=== PATIENT | male | born 1965 | race African-American/Black ===

== ENCOUNTER 2018-08-25 10:12 | Inpatient (IN) | payer OTHER ==
[2018-08-25 11:04] VITALS: BMI 31.7
--- NOTE | 2018-08-25 11:39 | HP ---
CIWA Score Nausea/Vomitin Muscle Tremors: 2 Anxiety: 2 Agitation: 2 Paroxysmal Sweats: 1-Minimal Palms Moist Orientation: 0-Oriented Tacttile Disturbances: 1-Very Mild Itch/Numbness Auditory Disturbances: 1-Very Mild Visual Disturbances: 0-None Headache: 2-Mild CIWA-Ar Total Score: 13 - Admission Criteria OASAS Guidelines: Admission for Medically Managed Detox: Requires at least one of the followin. CIWA greater than 12 2. Seizures within the past 24 hours 3. Delirium tremens within the past 24 hours 4. Hallucinations within the past 24 hours 5. Acute intervention needed for co occurring medical disorder 6. Acute intervention needed for co occurring psychiatric disorder 7. Severe withdrawal that cannot be handled at a lower level of care (continued vomiting, continued diarrhea, abnormal vital signs) requiring intravenous medication and/or fluids 8. Admission ROS S - HPI Chief Complaint: i need help to stop drinking alcohol and cocaine Allergies/Adverse Reactions: Allergies Allergy/AdvReac Type Severity Reaction Status Date / Time No Known Allergies Allergy Verified 08/25/18 11:25 History of Present Illness: this 53 years old male with alcohol and cocaine dependence,seeking detox, withdrawal symptom, last treatment in [facility] 04/15/15 to 06/19/14 multiple admissions in detox,but keep relapsing plantar fasciitis left treated with lidocaine and cortisone injection plan to go to see advertising production manager at [facility] nicotine dependence 2 packs /day,plan for patch and gum bipolar disorder non compliance longest sobriety 3 years - Ebola screening Have you traveled outside of the country in the last 21 days: No Have you had contact with anyone from an Ebola affected area: No Have you been sick,other than usual withdrawal symptoms: No Do you have a fever: No - Review of Systems Constitutional: Loss of Appetite, Malaise, Night Sweats, Changes in sleep EENT: reports: Nose Congestion Respiratory: reports: No Symptoms reported Cardiac: reports: No Symptoms Reported GI: reports: Diarrhea, Nausea : reports: No Symptoms Reported, Other (plantar fasciitis left) Musculoskeletal: reports: Back Pain, Muscle Pain Integumentary: reports: Dryness Neuro: reports: Tremors Endocrine: reports: No Symptoms Reported Hematology: reports: No Symptoms Reported Psychiatric: reports: No Sypmtoms Reported, Judgement Intact, Mood/Affect Appropiate, Orientated x3 Other Systems: Reviewed and Negative Patient History - Patient Medical History Hx Anemia: Yes (NOT CURRENTLY IN [place]) Hx Asthma: No Hx Chronic Obstructive Pulmonary Disease (COPD): No Hx Cancer: No Hx Cardiac Disorders: No Hx Congestive Heart Failure: No Hx Hypertension: No Hx Hypercholesterolemia: No Hx Pacemaker: No HX Cerebrovascular Accident: No Hx Seizures: No Hx Diabetes: No Hx Gastrointestinal Disorders: No Hx Liver Disease: No Hx Genitourinary Disorders: No Hx Sexually Transmitted Disorders: No Hx Renal Disease (ESRD): No Hx Thyroid Disease: Yes (TOLD HYPER ACTIVE THYROID AT SOME POINT) Hx Human Immunodeficiency Virus (HIV): No (NEGATIVE HX) Hx Hepatitis C: No Hx Depression: Yes Hx Suicide Attempt: Yes (Pt tried to cut wrists in 1994) Hx Bipolar Disorder: Yes Hx Schizophrenia: No Other Medical History: no suicidal,no homicidal, - Patient Surgical History Past Surgical History: No Hx Neurologic Surgery: No Hx Cataract Extraction: No Hx Cardiac Surgery: No Hx Lung Surgery: Yes (punctured left lung 15 years) Hx Breast Surgery: No Hx Breast Biopsy: No Hx Abdominal Surgery: No Hx Appendectomy: No Hx Cholecystectomy: No Hx Genitourinary Surgery: No Hx Section: No Hx Orthopedic Surgery: Yes (metal deanna in left leg 10 years) Anesthesia Reaction: No - PPD History Previous Implant?: Yes Documented Results: Negative w/o proof Implanted On Prior R Admission?: No Date: 04/17/15 Results: 0 mm PPD to be Administered?: Yes - Reproductive History Patient : No - Smoking Cessation Smoking history: Current every day smoker Have you smoked in the past 12 months: Yes Aproximately how many cigarettes per day: 40 Cigars Per Day: 0 Hx Chewing Tobacco Use: No Initiated information on smoking cessation: Yes 'Breaking Loose' booklet given: 08/25/18 - Substance & Tx. History Hx Alcohol Use: Yes Hx Substance Use: Yes Substance Use Type: Alcohol, Cocaine Hx Substance Use Treatment: Yes (last 04/15/15 to 04/19/15) - Substances Abused Alcohol Route: Oral Frequency: Daily Amount used: 2 pt. vodka Age of first use: 21 Date of Last Use: 08/24/18 Cocaine Route: Inhalation Frequency: Daily Amount used: $100 Age of first use: 21 Date of Last Use: 08/25/18 Family Disease History - Family Disease History Family Disease History: [place]: Father (prostate ) Admission Physical Exam S - Vital Signs Vital Signs: Vital Signs - 24 hr 08/25/18 11:03 Temperature 97.5 F L Pulse Rate 98 H Respiratory 20 Rate Blood Pressure 151/92 - Physical General Appearance: Yes: Moderate Distress, Tremorous, Irritable, Sweating, Anxious HEENTM: Yes: Normal ENT Inspection, TOÑA, Pharynx Normal Respiratory: Yes: Lungs Clear, Normal Breath Sounds, No Respiratory Distress, Other (s/p left chest tube) Neck: Yes: Within Normal Limits, Supple, Trachea in good position Breast: Yes: Within Normal Limits Cardiology: Yes: Within Normal Limits, Regular Rhythm, Regular Rate, S1, S2 Abdominal: Yes: Within Normal Limits, Normal Bowel Sounds, Non Tender, Flat Genitourinary: Yes: Within Normal Limits Back: Yes: Normal Inspection, Muscle Spasm Musculoskeletal: Yes: full range of Motion, Back pain, Muscle Pain Extremities: Yes: Tremors, Other (left platar fasciitis) Neurological: Yes: 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 intact, Alert, Motor Strength 5/5 Integumentary: Yes: Dry, Other (tattooes) Lymphatic: Yes: Within Normal Limits - Diagnostic (1) Alcohol dependence with uncomplicated withdrawal Current Visit: No Status: Acute (2) Bipolar disorder Current Visit: No Status: Acute Qualifiers: Active/Remission status: currently active (3) Cocaine dependence Current Visit: No Status: Acute (4) Nicotine dependence, uncomplicated Current Visit: No Status: Chronic Qualifiers: Nicotine product type: cigarettes Qualified Code(s): F17.210 - Nicotine dependence, cigarettes, uncomplicated (5) Insomnia Current Visit: Yes Status: Acute (6) History of chest tube placement Current Visit: Yes Status: Acute (7) Leg fracture, left Current Visit: Yes Status: Acute (8) Plantar fasciitis of left foot Current Visit: Yes Status: Acute Cleared for Admission S - Detox or Rehab [facility] Level of Care: Medically Managed Detox Regimen/Protocol: Librium S Breath Alcohol Content Breath Alcohol Content: 0 Urine Drug Screen - Results Drug Screen Negative: No Urine Drug Screen Results: OLAMIDE-Cocaine Inpatient Rehab Admission - Rehab Decision to Admit Inpatient rehab admission?: No
[2018-08-25] MEDS ORDERED: MAG HYDROX/AL HYDROX/SIMETH 30 ML UNIT-DOSE CUP PO PRN (12:13)
[2018-08-25] MEDS ORDERED: MELATONIN 5 MG TABLETS PO PRN (12:13)
[2018-08-25] MEDS ORDERED: METHOCARBAMOL 500 MG TABLET PO PRN (12:13)
[2018-08-25] MEDS ORDERED: MENTHOL/PHENOL 1 EACH UD MM PRN (12:13)
[2018-08-25] MEDS ORDERED: MAGNESIUM CITRATE 300 ML BOTTLE PO PRN (12:13)
[2018-08-25] MEDS ORDERED: IBUPROFEN 400 MG TABLET (FP) PO PRN (12:13)
[2018-08-25] MEDS ORDERED: chlordiazePOXIDE HCL 25 MG CAPSULE PO PRN (12:13)
[2018-08-25] MEDS ORDERED: NICOTINE POLACRILEX 2 MG GUM BUC PRN (12:13)
[2018-08-25] MEDS ORDERED: ACETAMINOPHEN 325 MG TABLET (FP) PO PRN ×2 (12:13)
[2018-08-25] MEDS ORDERED: MAGNESIUM HYDROX 2400MG/30ML ORAL SUSPENSION 30 ML CUP PO PRN (12:13)
[2018-08-25] MEDS ORDERED: hydrOXYzine PAMOATE 25 MG CAPSULE (FP) PO PRN (12:13)
[2018-08-25] MEDS ORDERED: BISMUTH SUBSALICYLATE 524 MG/30 ML UD PO PRN (12:13)
[2018-08-25] MEDS: NICOTINE 21 MG/24 HOURS TOPICAL PATCH TD SCH (15:29)
--- NOTE | 2018-08-25 18:27 | PN ---
[facility] Progress Note Note: Psychiatry Attending's note : New admission to the unit. Mr Chapman is already known to development writer. From a previous admission to [facility]. Complaint : insomnia. On seroquel 100 mg/hs. Last taken 2 days ago. Self-report. Vitals reviewed. Seroquel 100 mg po hs. Ordered. Side effects/benefits discussed with the patient. Consent (verbal) granted to
[2018-08-25] MEDS: QUEtiapine FUMARATE 100 MG TABLET (FP) PO SCH (22:30)
[2018-08-25] MEDS: chlordiazePOXIDE HCL 25 MG CAPSULE PO SCH (22:30)
[2018-08-25] MEDS: THIAMINE HCL 100 MG TABLET (FP) PO SCH (22:30)
[2018-08-26] MEDS: chlordiazePOXIDE HCL 25 MG CAPSULE PO SCH ×4 (06:33→22:28)
[2018-08-26 09:20] LABS: HEMATOCRIT 40.4 % (35.4-49); HEMOGLOBIN 13.9 GM/dL (11.7-16.9); MCH 31.7 pg (25.7-33.7); MCHC 34.4 g/dl (32.0-35.9); MEAN CELL VOLUME 92.3 fl (80-96); MEAN PLT VOLUME 9.5 fl (7.5-11.1); PLATELET COUNT 280 K/MM3 (134-434); RBC 4.38 M/mm3 (4.00-5.60); WHITE BLOOD COUNT 9.7 K/mm3 (4.0-10.0)
[2018-08-26 09:28] LABS: ALBUMIN 3.8 g/dl (3.4-5.0); ALK PHOS 78 U/L (45-117); ANION GAP 6 MMOL/L (8-16); BILIRUBIN,TOTAL 0.4 mg/dL (0.2-1); BLOOD UREA NITROGEN 25 mg/dL (7-18); CALCIUM 8.4 mg/dL (8.5-10.1); CHLORIDE 106 mmol/L (98-107); CO2 27 mmol/L (21-32); CREATININE 1.3 mg/dL (0.55-1.3); GLUCOSE,RANDOM 114 mg/dL (74-106); POTASSIUM 3.9 mmol/L (3.5-5.1); SGOT/AST 43 U/L (15-37); SGPT/ALT 40 U/L (13-61); SODIUM 139 mmol/L (136-145); TOT PROT 8.6 g/dl (6.4-8.2)
[2018-08-26 11:04] LABS: SICKLE CELL SCREEN POSITIVE (NEGATIVE)
[2018-08-26] MEDS: NICOTINE 21 MG/24 HOURS TOPICAL PATCH TD SCH (11:40)
[2018-08-26] MEDS: PRENATAL VITAMINS W/ FOLIC ACID TABLET (FP) PO SCH (11:40)
--- NOTE | 2018-08-26 13:18 | PN ---
S CIWA - CIWA Score Nausea/Vomitin-Mild Nausea/No Vomiting Muscle Tremors: 2 Anxiety: 1-Mildly Anxious Agitation: 2 Paroxysmal Sweats: 1-Minimal Palms Moist Orientation: 1-Uncertain about Date Tacttile Disturbances: 0-None Auditory Disturbances: 0-None Visual Disturbances: 0-None Headache: 1-Very Mild CIWA-Ar Total Score: 9 [facility] Progress Note (SOAP) Subjective: patient is doing well withdrawal symptoms of tremor sweating Objective: 08/26/18 13:20 Vital Signs Temperature 96.4 F L 08/26/18 09:16 Pulse Rate 89 08/26/18 09:16 Respiratory Rate 20 08/26/18 09:16 Blood Pressure 106/70 08/26/18 09:16 O2 Sat by Pulse Oximetry (%) Laboratory Last Values WBC 9.7 K/mm3 (4.0-10.0) 08/26/18 06:00 RBC 4.38 M/mm3 (4.00-5.60) 08/26/18 06:00 Hgb 13.9 GM/dL (11.7-16.9) 08/26/18 06:00 Hct 40.4 % (35.4-49) 08/26/18 06:00 MCV 92.3 fl (80-96) 08/26/18 06:00 MCH 31.7 pg (25.7-33.7) 08/26/18 06:00 MCHC 34.4 g/dl (32.0-35.9) 08/26/18 06:00 RDW 14.0 % (11.9-15.9) 08/26/18 06:00 Plt Count 280 K/MM3 (134-434) 08/26/18 06:00 MPV 9.5 fl (7.5-11.1) 08/26/18 06:00 Sickle Cell Screen Positive (NEGATIVE) 08/26/18 06:00 Sodium 139 mmol/L (136-145) 08/26/18 06:00 Potassium 3.9 mmol/L (3.5-5.1) 08/26/18 06:00 Chloride 106 mmol/L (98-107) 08/26/18 06:00 Carbon Dioxide 27 mmol/L (21-32) 08/26/18 06:00 Anion Gap 6 MMOL/L (8-16) L 08/26/18 06:00 BUN 25 mg/dL (7-18) H 08/26/18 06:00 Creatinine 1.3 mg/dL (0.55-1.3) 08/26/18 06:00 Creat Clearance w eGFR 58.20 (>60) 08/26/18 06:00 Random Glucose 114 mg/dL (74-106) H 08/26/18 06:00 Calcium 8.4 mg/dL (8.5-10.1) L 08/26/18 06:00 Total Bilirubin 0.4 mg/dL (0.2-1) 08/26/18 06:00 AST 43 U/L (15-37) H 08/26/18 06:00 ALT 40 U/L (13-61) 08/26/18 06:00 Alkaline Phosphatase 78 U/L (45-117) 08/26/18 06:00 Total Protein 8.6 g/dl (6.4-8.2) H 08/26/18 06:00 Albumin 3.8 g/dl (3.4-5.0) 08/26/18 06:00 RPR Titer Nonreactive (NONREACTIVE) 08/26/18 06:00 lab noted Assessment: 08/26/18 13:20 withdrawal sx Plan: continue detox
--- NOTE | 2018-08-26 17:52 | CONSULT ---
[facility] Psychiatric Consult - Data Date of interview: 08/26/18 Admission source: [facility] Identifying data: THREE visits at bedside for psychiatric evaluation. Patient is found asleep. Observed resting comfortably. No evidence of distress. Interview is waived. Will evaluate if request for psychiatrist consult is renewed.
[2018-08-26] MEDS: THIAMINE HCL 100 MG TABLET (FP) PO SCH (22:28)
[2018-08-26] MEDS: QUEtiapine FUMARATE 100 MG TABLET (FP) PO SCH (22:28)
[2018-08-27] MEDS: chlordiazePOXIDE HCL 25 MG CAPSULE PO SCH ×3 (07:46→18:16)
--- NOTE | 2018-08-27 09:56 | PN ---
[facility] CIWA - CIWA Score Nausea/Vomitin-No Nausea/No Vomiting Muscle Tremors: 1-None Visible, but [place] Anxiety: 1-Mildly Anxious Agitation: 1-Slight > Activity Paroxysmal Sweats: 1-Minimal Palms Moist Orientation: 0-Oriented Tacttile Disturbances: 0-None Auditory Disturbances: 0-None Visual Disturbances: 0-None Headache: 1-Very Mild CIWA-Ar Total Score: 5 S Progress Note (SOAP) Subjective: reporting mild tremor sleep better at night preferring to go to rehab and keep his sobriety Objective: 08/27/18 09:55 Vital Signs Temperature 98.1 F 08/27/18 08:08 Pulse Rate 92 H 08/27/18 08:08 Respiratory Rate 18 08/27/18 08:08 Blood Pressure 125/79 08/27/18 08:08 O2 Sat by Pulse Oximetry (%) Laboratory Last Values WBC 9.7 K/mm3 (4.0-10.0) 08/26/18 06:00 RBC 4.38 M/mm3 (4.00-5.60) 08/26/18 06:00 Hgb 13.9 GM/dL (11.7-16.9) 08/26/18 06:00 Hct 40.4 % (35.4-49) 08/26/18 06:00 MCV 92.3 fl (80-96) 08/26/18 06:00 MCH 31.7 pg (25.7-33.7) 08/26/18 06:00 MCHC 34.4 g/dl (32.0-35.9) 08/26/18 06:00 RDW 14.0 % (11.9-15.9) 08/26/18 06:00 Plt Count 280 K/MM3 (134-434) 08/26/18 06:00 MPV 9.5 fl (7.5-11.1) 08/26/18 06:00 Sickle Cell Screen Positive (NEGATIVE) 08/26/18 06:00 Sodium 139 mmol/L (136-145) 08/26/18 06:00 Potassium 3.9 mmol/L (3.5-5.1) 08/26/18 06:00 Chloride 106 mmol/L (98-107) 08/26/18 06:00 Carbon Dioxide 27 mmol/L (21-32) 08/26/18 06:00 Anion Gap 6 MMOL/L (8-16) L 08/26/18 06:00 BUN 25 mg/dL (7-18) H 08/26/18 06:00 Creatinine 1.3 mg/dL (0.55-1.3) 08/26/18 06:00 Creat Clearance w eGFR 58.20 (>60) 08/26/18 06:00 Random Glucose 114 mg/dL (74-106) H 08/26/18 06:00 Calcium 8.4 mg/dL (8.5-10.1) L 08/26/18 06:00 Total Bilirubin 0.4 mg/dL (0.2-1) 08/26/18 06:00 AST 43 U/L (15-37) H 08/26/18 06:00 ALT 40 U/L (13-61) 08/26/18 06:00 Alkaline Phosphatase 78 U/L (45-117) 08/26/18 06:00 Total Protein 8.6 g/dl (6.4-8.2) H 08/26/18 06:00 Albumin 3.8 g/dl (3.4-5.0) 08/26/18 06:00 RPR Titer Nonreactive (NONREACTIVE) 08/26/18 06:00 lab noted Assessment: alcohol withdrawal sx Plan: continue detox
[2018-08-27] MEDS: NICOTINE 21 MG/24 HOURS TOPICAL PATCH TD SCH (11:27)
[2018-08-27] MEDS: PRENATAL VITAMINS W/ FOLIC ACID TABLET (FP) PO SCH (11:28)
[2018-08-27] MEDS: THIAMINE HCL 100 MG TABLET (FP) PO SCH (22:09)
[2018-08-27] MEDS: chlordiazePOXIDE HCL 10 MG CAPSULE PO SCH (22:09)
[2018-08-27] MEDS: QUEtiapine FUMARATE 100 MG TABLET (FP) PO SCH (22:09)
[2018-08-27] MEDS ORDERED: chlordiazePOXIDE HCL 10 MG CAPSULE PO PRN (23:00)
[2018-08-28] MEDS: chlordiazePOXIDE HCL 10 MG CAPSULE PO SCH ×4 (06:21→22:00)
[2018-08-28] MEDS: PRENATAL VITAMINS W/ FOLIC ACID TABLET (FP) PO SCH (10:47)
[2018-08-28] MEDS: NICOTINE 21 MG/24 HOURS TOPICAL PATCH TD SCH (10:48)
--- NOTE | 2018-08-28 11:10 | PN ---
S CIWA - CIWA Score Nausea/Vomitin-No Nausea/No Vomiting Muscle Tremors: 1-None Visible, but [place] Anxiety: 1-Mildly Anxious Agitation: 1-Slight > Activity Paroxysmal Sweats: No Perspiration Orientation: 0-Oriented Tacttile Disturbances: 0-None Auditory Disturbances: 0-None Visual Disturbances: 0-None Headache: 0-None Present CIWA-Ar Total Score: 3 [facility] Progress Note (SOAP) Subjective: feeling better preferring to go to the group today doing ok today Objective: 08/28/18 11:10 Vital Signs Temperature 98.2 F 08/28/18 09:52 Pulse Rate 84 08/28/18 09:52 Respiratory Rate 18 08/28/18 09:52 Blood Pressure 103/61 08/28/18 09:52 O2 Sat by Pulse Oximetry (%) Laboratory Last Values WBC 9.7 K/mm3 (4.0-10.0) 08/26/18 06:00 RBC 4.38 M/mm3 (4.00-5.60) 08/26/18 06:00 Hgb 13.9 GM/dL (11.7-16.9) 08/26/18 06:00 Hct 40.4 % (35.4-49) 08/26/18 06:00 MCV 92.3 fl (80-96) 08/26/18 06:00 MCH 31.7 pg (25.7-33.7) 08/26/18 06:00 MCHC 34.4 g/dl (32.0-35.9) 08/26/18 06:00 RDW 14.0 % (11.9-15.9) 08/26/18 06:00 Plt Count 280 K/MM3 (134-434) 08/26/18 06:00 MPV 9.5 fl (7.5-11.1) 08/26/18 06:00 Sickle Cell Screen Positive (NEGATIVE) 08/26/18 06:00 Sodium 139 mmol/L (136-145) 08/26/18 06:00 Potassium 3.9 mmol/L (3.5-5.1) 08/26/18 06:00 Chloride 106 mmol/L (98-107) 08/26/18 06:00 Carbon Dioxide 27 mmol/L (21-32) 08/26/18 06:00 Anion Gap 6 MMOL/L (8-16) L 08/26/18 06:00 BUN 25 mg/dL (7-18) H 08/26/18 06:00 Creatinine 1.3 mg/dL (0.55-1.3) 08/26/18 06:00 Creat Clearance w eGFR 58.20 (>60) 08/26/18 06:00 Random Glucose 114 mg/dL (74-106) H 08/26/18 06:00 Calcium 8.4 mg/dL (8.5-10.1) L 08/26/18 06:00 Total Bilirubin 0.4 mg/dL (0.2-1) 08/26/18 06:00 AST 43 U/L (15-37) H 08/26/18 06:00 ALT 40 U/L (13-61) 08/26/18 06:00 Alkaline Phosphatase 78 U/L (45-117) 08/26/18 06:00 Total Protein 8.6 g/dl (6.4-8.2) H 08/26/18 06:00 Albumin 3.8 g/dl (3.4-5.0) 08/26/18 06:00 RPR Titer Nonreactive (NONREACTIVE) 08/26/18 06:00 lab noted Assessment: 08/28/18 11:10 alcohol withdrawal sx Plan: continue detox
[2018-08-28 18:11] LABS: HGB SOLUBILITY Positive (Negative); Hgb C 0 % (0.0); Hgb F 0 % (0.0-2.0); Hgb S 38.1 % (0.0)
[2018-08-28] MEDS: THIAMINE HCL 100 MG TABLET (FP) PO SCH (22:00)
[2018-08-28] MEDS: QUEtiapine FUMARATE 100 MG TABLET (FP) PO SCH (22:00)
[2018-08-29 09:25] VITALS: BP 110/65; PULSE 82; TEMP 97.5
[2018-08-29] MEDS: PRENATAL VITAMINS W/ FOLIC ACID TABLET (FP) PO SCH (10:45)
[2018-08-29] MEDS: NICOTINE 21 MG/24 HOURS TOPICAL PATCH TD SCH (10:45)
[2018-08-29] MEDS: chlordiazePOXIDE HCL 10 MG CAPSULE PO SCH (10:45)
--- NOTE | 2018-08-29 17:27 | DS ---
[facility] Detox Discharge Summary Admission Date: 08/25/18 Discharge Date: 08/29/18 - History Present History: Alcohol Dependence, Cocaine Dependence Additional Comments: PATIENT REFERRED TO '[facility] PROGRAM ([place], [place]) FOR AFTERCARE. PATIENT REPORTS KNOWN HISTORY OF POSITIVE SICKLE CELL TRAIT WHEN ASKED AND THAT HE HAS CONSULTED MEDICAL PROVIDER ABOUT IT IN PAST. COPIES OF RESULTS OF ALL LABS DRAWN WHILE ADMITTED FOR DETOX GIVEN TO PATIENT AT TIME OF DISCHARGE FROM DETOX UNIT. PATIENT WAS DISCHARGED FROM DETOX UNIT IN STABLE MEDICAL CONDITION. Pertinent Past History: History of Bipolar Disorder, History of Anemia, History of Hyperthyroidism, Nicotine Depednence, History of Insomnia, History of Chest Tube Placement, History of Fracture of Left Leg, History of Plantar Fascitis of Left Foot. - Physical Exam Results Vital Signs: Vital Signs Temperature 97.5 F L 08/29/18 09:24 Pulse Rate 82 08/29/18 09:24 Respiratory Rate 18 08/29/18 09:24 Blood Pressure 110/65 08/29/18 09:24 O2 Sat by Pulse Oximetry (%) Pertinent Admission Physical Exam Findings: WITHDRAWAL SYMPTOMS. Laboratory Tests 08/26/18 08/26/18 08/26/18 06:00 06:00 06:00 WBC 9.7 RBC 4.38 Hgb 13.9 Hct 40.4 MCV 92.3 MCH 31.7 MCHC 34.4 RDW 14.0 Plt Count 280 MPV 9.5 Sickle Cell Screen Positive Hemoglobin A Hemoglobin A2 Hemoglobin C Hemoglobin S Variant Hemoglobin Hemoglobin Interpret Maternal Rh Hemoglobin Solubility Sodium 139 Potassium 3.9 Chloride 106 Carbon Dioxide 27 Anion Gap 6 L BUN 25 H Creatinine 1.3 Creat Clearance w eGFR 58.20 Random Glucose 114 H Calcium 8.4 L Total Bilirubin 0.4 AST 43 H ALT 40 Alkaline Phosphatase 78 Total Protein 8.6 H Albumin 3.8 RPR Titer Nonreactive 08/26/18 06:00 WBC RBC Hgb Hct MCV MCH MCHC RDW Plt Count MPV Sickle Cell Screen Hemoglobin A 58.1 L Hemoglobin A2 3.8 H Hemoglobin C 0 Hemoglobin S 38.1 H Variant Hemoglobin 0.0 Hemoglobin Interpret Maternal Rh 0 Hemoglobin Solubility Positive H Sodium Potassium Chloride Carbon Dioxide Anion Gap BUN Creatinine Creat Clearance w eGFR Random Glucose Calcium Total Bilirubin AST ALT Alkaline Phosphatase Total Protein Albumin RPR Titer LABS NOTED. - Treatment Hospital Course: Detox Protocol Followed, Detoxed Safely, Responded well, Discharged Condition Good Patient has Accepted a Rehab Referral to: [facility] ( [place], [place], [place] - Medication Discharge Medications: Ambulatory Orders Quetiapine Fumarate [Seroquel -] 100 mg PO BID 08/25/18 - Diagnosis (1) Alcohol dependence with uncomplicated withdrawal Status: Acute (2) Bipolar disorder Status: Acute Qualifiers: Active/Remission status: remission status unspecified Qualified Code(s): F31.9 - Bipolar disorder, unspecified (3) Cocaine dependence Status: Acute Qualifiers: Substance use status: uncomplicated Qualified Code(s): F14.20 - Cocaine dependence, uncomplicated (4) History of chest tube placement Status: Acute (5) Insomnia Status: Acute Qualifiers: Insomnia type: unspecified Qualified Code(s): G47.00 - Insomnia, unspecified (6) Leg fracture, left Status: Acute Qualifiers: Encounter type: sequela Fracture type: closed Qualified Code(s): S82.92XS - Unspecified fracture of left lower leg, sequela (7) Plantar fasciitis of left foot Status: Acute (8) Nicotine dependence, uncomplicated Status: Chronic Qualifiers: Nicotine product type: cigarettes Qualified Code(s): F17.210 - Nicotine dependence, cigarettes, uncomplicated - AMA Did Patient Leave Against Medical Advice: No
== END 2018-08-29 10:47 | disposition home or self-care (01) | DRG 774 ==
LOC: YASAS 10:12 → Y3N 14:03
PROVIDERS: ADMIT Surgery; ATTEND Surgery
PROC: HZ2ZZZZ Detoxification Services for Substance Abuse Treatment (ICD-10-PCS; principal; 2018-08-25)
DX: F10.230 Alcohol dependence with withdrawal, uncomplicated (principal); F14.20 Cocaine dependence, uncomplicated; F17.210 Nicotine dependence, cigarettes, uncomplicated; F31.9 Bipolar disorder, unspecified; G47.00 Insomnia, unspecified; M72.2 Plantar fascial fibromatosis; E05.90 Thyrotoxicosis, unspecified without thyrotoxic crisis or storm; Z86.2 Personal history of diseases of the blood and blood-forming organs and certain disorders involving the immune mechanism; Z91.5 Personal history of self-harm; Z87.81 Personal history of (healed) traumatic fracture
CPT/HCPCS: 36415; 80053; 83021; 85027; 85660; 86593

== ENCOUNTER 2024-08-29 11:49 | Inpatient (IN) | payer OTHER ==
[2024-08-29 12:28] VITALS: BMI 20.3
[2024-08-29] MEDS ORDERED: BENZONATATE 200 MG CAPSULE PO PRN (12:37)
[2024-08-29] MEDS ORDERED: MAGNESIUM HYDROX 2400MG/30ML ORAL SUSPENSION 30 ML CUP PO PRN (12:37)
[2024-08-29] MEDS ORDERED: IBUPROFEN 600 MG TABLET (FP) PO PRN (12:37)
[2024-08-29] MEDS ORDERED: LOPERAMIDE HCL 2 MG CAPSULE PO PRN (12:37)
[2024-08-29] MEDS ORDERED: BENZOCAINE/MENTHOL (CHLORASEPTIC ) LOZENGE MM PRN (12:37)
[2024-08-29] MEDS ORDERED: NICOTINE POLACRILEX 2 MG GUM BUC PRN (12:37)
[2024-08-29] MEDS ORDERED: IBUPROFEN 400 MG TABLET (FP) PO PRN (12:37)
[2024-08-29] MEDS ORDERED: NALOXONE (NARCAN) HCL 4 MG/0.1 ML SPRAY NS PRN (12:37)
[2024-08-29] MEDS ORDERED: MAG HYDROX/AL HYDROX/SIMETH 30 ML UNIT-DOSE CUP PO PRN (12:37)
[2024-08-29] MEDS ORDERED: BISMUTH SUBSALICYLATE 524 MG/30 ML PO PRN (12:37)
[2024-08-29] MEDS ORDERED: DICYCLOMINE HCL 10 MG CAPSULE PO PRN (12:37)
[2024-08-29] MEDS ORDERED: NICOTINE POLACRILEX 2 MG LOZENGE BC PRN (12:37)
[2024-08-29] MEDS ORDERED: ONDANSETRON *ODT* 4 MG TABLET SL PRN (12:37)
[2024-08-29] MEDS ORDERED: POLYETHYLENE GLYCOL (HEALTHYLAX) 3350 17 GM PACKET PO PRN (12:37)
[2024-08-29] MEDS ORDERED: ACETAMINOPHEN 325 MG TABLET (FP) PO PRN (12:37)
[2024-08-29] MEDS ORDERED: guaiFENesin 600 MG TABLET.ER (FP) PO PRN (12:37)
[2024-08-29] MEDS: THIAMINE 100 MG TABLET PO SCH (22:21)
[2024-08-29] MEDS: MELATONIN 5 MG TABLETS PO SCH (22:22)
[2024-08-30 08:58] LABS: CHLORIDE 109 mmol/L (98-107); POTASSIUM 4.3 mmol/L (3.5-5.1); SODIUM 140 mmol/L (136-145)
[2024-08-30 09:01] LABS: ALBUMIN 2.8 g/dl (3.4-5.0); ANION GAP 9 mmol/L (4-13); BLOOD UREA NITROGEN 13.2 mg/dL (7-18); CALCIUM 8.2 mg/dL (8.5-10.1); CO2 23 mmol/L (21-32); GLUCOSE,RANDOM 132 mg/dL (74-106)
[2024-08-30 09:04] LABS: CREATININE 0.7 mg/dL (0.55-1.3); SGOT/AST 16 U/L (15-37); SGPT/ALT 20 U/L (13-61)
[2024-08-30 09:06] LABS: BILIRUBIN,TOTAL 0.4 mg/dL (0.2-1); TOT PROT 6.7 g/dl (6.4-8.2)
[2024-08-30 09:07] LABS: ALK PHOS 75 U/L (45-117)
[2024-08-30 09:52] LABS: HEMATOCRIT 39.9 % (40.1-51.0); HEMOGLOBIN 13.4 g/dL (13.7-17.5); MCHC 33.6 g/dl (32.3-36.5); MEAN CELL VOLUME 92.1 fl (79.0-92.2); PLATELET COUNT # 263 x10^3/uL (163-337); RDW 12.6 % (12.2-16.1)
[2024-08-30] MEDS: PRENATAL VITAMINS W/ FOLIC ACID TABLET (FP) PO SCH (10:18)
[2024-08-30] MEDS: METHOCARBAMOL 500 MG TABLET PO PRN (22:11)
[2024-08-30] MEDS: hydrOXYzine PAMOATE 25 MG CAPSULE (FP) PO PRN (22:11)
[2024-08-31 08:49] VITALS: RESP 18
[2024-08-31 13:28] VITALS: BP 168/94; PULSE 62; TEMP 98
== END 2024-08-31 12:50 | disposition home or self-care (01) | DRG 774 ==
LOC: YASAS 11:49 → Y3N 13:29
PROVIDERS: ADMIT Allergy & Immunology; ATTEND Allergy & Immunology
PROC: HZ2ZZZZ Detoxification Services for Substance Abuse Treatment (ICD-10-PCS; principal; 2024-08-29)
DX: F10.20 Alcohol dependence, uncomplicated (principal); F14.20 Cocaine dependence, uncomplicated; F17.210 Nicotine dependence, cigarettes, uncomplicated; F31.9 Bipolar disorder, unspecified
CPT/HCPCS: 36415; 80053; 80305; 80307; 82962; 85027; 86593; 86780; 93005; 93010